=== PATIENT | male | born 1970 | race Caucasian/White ===

== ENCOUNTER 2022-09-12 08:22 | Outpatient (CLI) | payer BC, SELFPAY ==
--- NOTE | 2022-09-12 09:25 | W.ANESCHARGE ---
Anesthesia Charges Start Date/Time Anesthesia Start Date: 09/12/22 Anesthesia Start Time: 08:50 Stop Date/Time Anesthesia Stop Date: 09/12/22 Anesthesia Stop Time: 09:20
== END 2022-09-12 08:23 | disposition home or self-care (01) ==
LOC: OP CLINIC 08:23
PROVIDERS: PCP Physician Assistant Medical; Visit Provider Surgery
DX: Z12.11 Encounter for screening for malignant neoplasm of colon (principal); K63.5 Polyp of colon; K57.30 Diverticulosis of large intestine without perforation or abscess without bleeding; K63.89 Other specified diseases of intestine; Z86.010 Personal history of colon polyps
CPT/HCPCS: 00811; 45380; 45385; 88305; J2704

== ENCOUNTER 2023-06-30 14:12 | Outpatient (CLI) | payer OTHER, SELFPAY | END 2023-06-30 14:13 | disposition home or self-care (01) | PROVIDERS: PCP Family Medicine; Visit Provider Family Medicine | DX: Z00.00 Encounter for general adult medical examination without abnormal findings (principal); R03.0 Elevated blood-pressure reading, without diagnosis of hypertension; E66.9 Obesity, unspecified; R07.9 Chest pain, unspecified; Z82.49 Family history of ischemic heart disease and other diseases of the circulatory system; Z13.6 Encounter for screening for cardiovascular disorders | CPT/HCPCS: 80053; 80061 ==

== ENCOUNTER 2023-07-10 10:41 | Outpatient (CLI) | payer OTHER, SELFPAY ==
[2023-07-10 11:15] VITALS: PULSE 103; RESP 20
--- NOTE | 2023-07-10 11:38 | W.PM.STED ---
Stress Test Note Date Date Seen: 07/10/23 Date of test: 07/10/23 Providers Primary care provider: Funmi Clark Stress test physician: Brittni Yen Stress Test Note Stress test ordered: Exercise Stress Test Indication for test: Chest pain, tachycardia Stress test medicine: None Results discussion: Resting EKG: Sinus rhythm, 88 beats per minute. Incomplete right bundle branch block. Resting blood pressure: 135/88 Stress test: Patient exercised on the treadmill following standard Mickey protocol. Just after 8 minutes patient developed left chest discomfort that started to become more painful. We did terminate exercise at 9 minutes as he had achieved a heart rate of 165 and was having chest symptoms. He had a maximum heart rate during exercise of 165 beats per minute which was 116% of a calculated target of 142. He did have a mild hypertensive response to exercise with maximal blood pressure 182. Calculated rate pressure product was 28,160. There was no definitive ST segment changes diagnostic of ischemia. He did notably have a flipped T-wave in aVL and did flip his T-wave in lead V2 in recovery but there was no diagnostic ST segment changes. At the end of recovery, patient was feeling a little more left-sided chest discomfort. It was discussed with patient that given he was having ongoing symptoms, would recommend evaluation with troponin levels. Patient was brought to the ER for further evaluation and management. Impression: Subjectively positive, objectively negative EKG portion of this standard Mickey protocol treadmill exercise stress test. Follow up suggested: Patient was brought to the ER for more formal diagnostic testing including troponins. Sign-out was given to the ER physician.
== END 2023-07-10 10:42 | disposition home or self-care (01) ==
LOC: STRESS 10:45
PROVIDERS: PCP Family Medicine; Visit Provider Family Medicine
DX: R07.9 Chest pain, unspecified (principal); R00.0 Tachycardia, unspecified; R03.0 Elevated blood-pressure reading, without diagnosis of hypertension; R00.2 Palpitations
CPT/HCPCS: 93016; 93017

== ENCOUNTER 2023-07-10 11:21 | Emergency (ER) | payer OTHER, SELFPAY ==
[2023-07-10] VITALS (61 sets, daily range): BP systolic 143–193; BP diastolic 68–107; PULSE 76–106; RESP 20; O2SAT 91–98; BMI 34.7
--- NOTE | 2023-07-10 11:28 | CRLHL7_ITS ---
For Patients: As a result of the Cures Act, medical imaging exams and procedure reports are released immediately into your electronic medical record. You may view this report before your referring provider. If you have questions, please contact your health care provider. INDICATION: Chest pain. TECHNIQUE: Chest 2 views. COMPARISON: None. FINDINGS: Cardiovascular and mediastinum: Heart size and vasculature are normal in caliber and appearance. Lungs and pleural spaces: Lungs are clear. No sign of infiltrate or mass. No sign of pleural effusion. No pneumothorax. Bones and soft tissues: No significant findings. Surgical anchors in the left humerus. IMPRESSION: No acute cardiopulmonary process. Dictated by Fracisco Lucia MD @ 07/10/2023 12:16:03 PM (Electronically Signed)
--- NOTE | 2023-07-10 11:35 | ED_ITS ---
HPI - General Adult General Date Seen: 07/10/23 Chief complaint: Chest Pain Stated complaint: Chest pain Time Seen by Provider: 07/10/23 11:26 History of Present Illness HPI narrative: This is a very pleasant 52-year-old male with a past medical history which incl udes PTSD from service, insomnia, depression, BPH, overweight. He has no history of known heart or lung disease. He is a nonsmoker. Cardiac risk factors include his weight. He does not have hyperlipidemia, hypertension, for coli diabetes, family history of premature coronary artery disease. He is referred to the ER today by his stress test physician, Dr. Ludwig for chest pain and hypertension, induce during his stress test this morning. He has been experiencing intermittent episodes of chest symptoms which sometimes included chest fullness and tightness and sometimes chest pain. Often they will wrapper on the left side of his ribcage to his back. Symptoms have been occurring intermittently for several months. Initially they were fairly infrequent, occurring perhaps 1-3 times per week. Since about a month ago the beak been becoming more frequent. He has also noted some evolving dyspnea on exertion. 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 That involves a lot a running. During some of his games he is able to rest and run without symptoms. During other games he notes that he gets short of breath and squeezing leading him to sit down and take a break. He called his doctor about a month ago when his shortness of breath started to get worse. They recommended that he come to the ER but he did not feel that his symptoms were that Urgent to that time. With more frequent episodes of discomfort lately he did see his primary care provider about a week ago, after Thanksgiving. He was set up for an outpatient stress test which occurred today. His insurance company block distressed echo and he did a treadmill stress test with EKG only today. Per report the EKG did not show any definitive ischemia but he did have some nonspecific T-wave inversions during the stress test. He developed chest discomfort during the stress test. He also developed marked hypertension. Initial blood pressure was in the 130 systolic and went up to about 190 systolic. He was sent here to the ER and was having active chest pain at the time he arrived here but that is getting better now. He was feeling a little bit dizzy on the way from the stress test to the ER. He thinks it is because he did not eat breakfast this morning any might be dehydrated. No other symptoms today. No palpitations. No nausea. No fever. No swelling in his arms or legs. The discomfort in his chest is across the front and wraps a little bit around the left side of his ribs. It does not go straight through to the interscapular back. It is not ripping or tearing. Related Data Previous Rx's Medication Instructions Recorded propranolol 10 mg tablet 10 mg PO TID PRN anxiety #90 tabs 05/09/22 duloxetine 30 mg capsule,delayed 30 mg PO BID #180 caps 06/30/23 release (Cymbalta) tadalafil 20 mg tablet (Cialis) 20 mg PO QDAY PRN sexual activity 06/30/23 #30 tabs tamsulosin 0.4 mg capsule 0.4 mg PO QHS #90 caps 06/30/23 trazodone 100 mg tablet 100 - 200 mg (1 - 2 x 100 mg) PO 06/30/23 QHS #180 tabs Allergies Allergy/AdvReac Type Severity Reaction Status Date / Time promethazine Allergy Severe severe Verified 07/10/23 11:28 muscle contration droperidol Allergy Intermediate states Verified 07/10/23 11:28 almost siezed tramadol AdvReac Severe Nausea Verified 07/10/23 11:28 PFSH PFS Medical History (Updated 08/21/22 @ 10:22 by Alexandra Fraire~[facility]) Intestinal infection due to Clostridium difficile (06/18/10) ?A04.72 - Enterocolitis due to Clostridium difficile, not specified as recurrent (ICD-10) History of hypogonadism ?Z86.39 - Personal history of other endocrine, nutritional and metabolic disease (ICD-10) Diverticulosis of large intestine (05/03/11) ?K57.30 - Diverticulosis of large intestine without perforation or abscess without bleeding (ICD-10) Chronic prostatitis (06/18/10) ?N41.1 - Chronic prostatitis (ICD-10) Calculus of kidney (06/18/10) ?N20.0 - Calculus of kidney (ICD-10) Erectile dysfunction ?N52.9 - Male erectile dysfunction, unspecified (ICD-10) Surgical History (Updated 09/09/22 @ 17:21 by Funmi Clark MD) History of partial colectomy ?Z90.49 - Acquired absence of other specified parts of digestive tract (ICD- 10) History of umbilical hernia repair (06/18/10) ?Z98.890 - Other specified postprocedural states (ICD-10) ?Z87.19 - Personal history of other diseases of the digestive system (ICD-10) History of rhinoplasty (06/18/10) ?Z98.890 - Other specified postprocedural states (ICD-10) History of repair of rotator cuff (03/09/13) ?Z98.890 - Other specified postprocedural states (ICD-10) History of knee surgery ?Z98.890 - Other specified postprocedural states (ICD-10) History of colonoscopy ?Z98.890 - Other specified postprocedural states (ICD-10) History of cholecystectomy (06/18/10) ?Z90.49 - Acquired absence of other specified parts of digestive tract (ICD- 10) History of arthroscopy of left knee ?Z98.890 - Other specified postprocedural states (ICD-10) History of appendectomy (04/29/11) ?Z90.49 - Acquired absence of other specified parts of digestive tract (ICD- 10) Family History (Updated 05/06/22 @ 19:34 by Violet Garg) Father A-fib Maternal Grandfather Colon cancer Family/Other Stroke Social History (Updated 05/06/22 @ 19:34 by Violet Garg) Narrative: consumes alcohol occasionally, does not use illicit drugs, non smoker Smoking Status: Never smoker Little interest or pleasure in doing things: more than half the days Feeling down, depressed, or hopeless: several days Exam Narrative: Exam Narrative: Constitutional: Appears well-developed and well-nourished. Alert. Conversant. Non toxic. HENT: Head: Atraumatic. Nose: Nose normal. Mouth/Throat: Oral mucosa is clear and moist. no trismus. Pharynx normal. Tonsils symmetric. No tonsillar enlargement, erythema, or exudate. Eyes: Conjunctivae normal. EOM normal. Pupils equal, round, and reactive to light. No scleral icterus. Neck: Normal range of motion. Neck supple. No tracheal deviation present. No JVD. Cardiovascular: Normal rate, regular rhythm. No gallop. No friction rub. No murmur heard. Symmetric radial and PT artery pulses Initial blood pressure reading was elevated at about 190/100. Blood pressure came down without treatment. Repeat blood pressure reading was 149/95 in the left arm and 151/90 in the right arm. Pulses are symmetric on exam. Pulmonary/Chest: Effort normal. No stridor. No respiratory distress. No wheezes. No rales. No rhonchi . No tenderness. Abdominal: Soft. Bowel sounds normal. No distension. No mass. No tenderness. No rebound. No guarding. Musculoskeletal: RUE: Normal range of motion. No tenderness. No deformity LUE: Normal range of motion. No tenderness. No deformity RLE: Normal range of motion. No edema. No tenderness. No deformity LLE: Normal range of motion. No edema. No tenderness. No deformity Lymph: No cervical adenopathy. Neurological: Alert and oriented to person, place, and time. Normal strength. CN II-VII intact. No sensory deficit. GCS eye subscore is 4. GCS verbal subscore is 5. GCS motor subscore is 6. Normal coordination Skin: Skin is warm and dry. No rash noted. No pallor. Normal capillary refill. Psychiatric: Normal mood. Normal affect. Polite. Endorses mild anxiety. He did not expect to be sent to the ER today. Const: Vital Signs, click to edit/add: Vital Signs - 24 hr 07/10/23 11:28 07/10/23 11:37 07/10/23 11:49 Pulse Rate 106 H 100 Pulse Rate [Pulse Oximeter] 101 H Respiratory Rate 20 Blood Pressure Blood Pressure [Le ft Upper Arm] 193/105 H Pulse Oximetry 97 94 95 Oxygen Delivery Pa thod Room Air 07/10/23 11:54 07/10/23 11:55 07/10/23 12:00 Pulse Rate 98 96 92 Pulse Rate [Pulse Oximeter] Respiratory Rate Blood Pressure 149/101 H 151/94 H Blood Pressure [Le ft Upper Arm] Pulse Oximetry 98 95 96 Oxygen Delivery Me thod 07/10/23 12:15 07/10/23 12:26 07/10/23 12:33 Pulse Rate 89 88 95 Pulse Rate [Pulse Oximeter] Respiratory Rate Blood Pressure 165/95 H Blood Pressure [Le ft Upper Arm] Pulse Oximetry 97 92 96 Oxygen Delivery Me thod 07/10/23 12:45 07/10/23 12:56 07/10/23 13:00 Pulse Rate 85 85 83 Pulse Rate [Pulse Oximeter] Respiratory Rate Blood Pressure 156/96 H Blood Pressure [Le ft Upper Arm] Pulse Oximetry 94 95 94 Oxygen Delivery Me thod 07/10/23 13:15 07/10/23 13:29 07/10/23 13:30 Pulse Rate 82 92 87 Pulse Rate [Pulse Oximeter] Respiratory Rate Blood Pressure 173/101 H Blood Pressure [Le ft Upper Arm] Pulse Oximetry 96 95 95 Oxygen Delivery Me thod 07/10/23 13:45 07/10/23 13:58 07/10/23 14:00 Pulse Rate 81 88 84 Pulse Rate [Pulse Oximeter] Respiratory Rate Blood Pressure 153/94 H Blood Pressure [Le ft Upper Arm] Pulse Oximetry 93 94 93 Oxygen Delivery Me thod 07/10/23 14:03 07/10/23 14:04 07/10/23 14:09 Pulse Rate 82 76 94 Pulse Rate [Pulse Oximeter] Respiratory Rate Blood Pressure 163/107 H 151/103 H Blood Pressure [Le ft Upper Arm] Pulse Oximetry 98 95 96 Oxygen Delivery Me thod 07/10/23 14:10 07/10/23 14:15 07/10/23 14:30 Pulse Rate 89 81 78 Pulse Rate [Pulse Oximeter] Respiratory Rate Blood Pressure Blood Pressure [Le ft Upper Arm] Pulse Oximetry 96 92 96 Oxygen Delivery Me thod 07/10/23 14:38 07/10/23 14:39 07/10/23 14:45 Pulse Rate 81 77 88 Pulse Rate [Pulse Oximeter] Respiratory Rate Blood Pressure 161/88 H Blood Pressure [Le ft Upper Arm] Pulse Oximetry 97 93 94 Oxygen Delivery Me thod 07/10/23 15:00 07/10/23 15:08 07/10/23 15:15 Pulse Rate 87 97 92 Pulse Rate [Pulse Oximeter] Respiratory Rate Blood Pressure 160/88 H Blood Pressure [Le ft Upper Arm] Pulse Oximetry 93 93 94 Oxygen Delivery Me thod 07/10/23 15:30 07/10/23 15:38 07/10/23 15:45 Pulse Rate 91 95 94 Pulse Rate [Pulse Oximeter] Respiratory Rate Blood Pressure 147/68 H Blood Pressure [Le ft Upper Arm] Pulse Oximetry 93 93 97 Oxygen Delivery Me thod 07/10/23 16:00 07/10/23 16:08 07/10/23 16:15 Pulse Rate 91 91 90 Pulse Rate [Pulse Oximeter] Respiratory Rate Blood Pressure 156/84 H Blood Pressure [Le ft Upper Arm] Pulse Oximetry 94 94 96 Oxygen Delivery Me thod 07/10/23 16:30 07/10/23 16:38 07/10/23 16:45 Pulse Rate 84 83 83 Pulse Rate [Pulse Oximeter] Respiratory Rate Blood Pressure 157/88 H Blood Pressure [Le ft Upper Arm] Pulse Oximetry 92 95 97 Oxygen Delivery Me thod 07/10/23 17:00 07/10/23 17:08 07/10/23 17:15 Pulse Rate 98 91 85 Pulse Rate [Pulse Oximeter] Respiratory Rate Blood Pressure 143/85 H Blood Pressure [Le ft Upper Arm] Pulse Oximetry 95 95 94 Oxygen Delivery Me thod 07/10/23 17:33 07/10/23 17:38 07/10/23 17:45 Pulse Rate 91 89 86 Pulse Rate [Pulse Oximeter] Respiratory Rate Blood Pressure 152/85 H Blood Pressure [Le ft Upper Arm] Pulse Oximetry 93 93 91 Oxygen Delivery Me thod 07/10/23 18:00 07/10/23 18:08 Pulse Rate 92 92 Pulse Rate [Pulse Oximeter] Respiratory Rate Blood Pressure 171/91 H Blood Pressure [Le ft Upper Arm] Pulse Oximetry 94 93 Oxygen Delivery Me thod Course Course ED Course: Initial troponin, chest x-ray are normal. Add on D-dimer was normal. Initial blood pressure was quite elevated about 190/100. Blood pressure came down to about 150/95 without antihypertensive treatment. Recheck-patient was having some chest pain here in the ER. We administered sublingual nitro. No change after 1st nitro. Patient received a 2nd nitro and then a bit later pain resolved. It was unclear whether not the pain resolved as response to nitro or if it just resolved on its own. Recheck-2nd troponin back and normal. Discussed with the patient. He says he is having a little bit of recurrent pain now while he is resting in bed. Discussed with Cardiology, Dr. Rutledge. He says without objective evidence for ACS hold off on heparin or catheterization at this time. He would recommend that we get the patient admitted for either stress echo, coronary CTA or nuclear stress test prior to discharge. Unfortunately, these studies are not available here at [place]. He could potentially get a stress echo here next week, but not today or tomorrow or this weekend. Therefore, to expedite workup with potential ACS we will request transfer to [place]. [place] transfer [facility] indicates that they should have a bed without much delay. The electrician chief accepts on behalf of the hospitalist. Updated the patient. He verbalizes agreement. He is more anxious now. Ativan ordered. Recheck-had some recurrent chest pain. He received additional sublingual nitroglycerin at this time clearly had response to the nitro. No chest pain free. Recheck-blood pressure stable. Watching TV. Chest pain-free. Vital Signs Vital signs: Initial Vital Signs Respiratory Effort Normal, Spontaneous, Non-Labored 07/10/23 11:27 Respiratory Depth Normal 07/10/23 11:27 Vital Signs Pulse Rate 101 H 07/10/23 11:28 Respiratory Rate 20 07/10/23 11:28 Blood Pressure 193/105 H 07/10/23 11:28 Pulse Oximetry 97 07/10/23 11:28 Oxygen Delivery Method Room Air 07/10/23 11:28 Pulse Rate 92 07/10/23 18:08 Respiratory Rate 20 07/10/23 11:28 Blood Pressure 171/91 H 07/10/23 18:08 Pulse Oximetry 93 07/10/23 18:08 Oxygen Delivery Method Room Air 07/10/23 11:28 Medications Administered Medications: Generic Name Dose Route Start Last Admin Trade Name Freq PRN Reason Stop Dose Admin Nitroglycerin 0.4 mg 07/10/23 13:53 07/10/23 16:58 Nitroglycerin 0.4 Mg Tab.Subl SUBLINGUAL 0.4 mg Q5M PRN Administration Discontinued Medications Generic Name Dose Route Start Last Admin Trade Name Freq PRN Reason Stop Dose Admin Aspirin 162 mg 07/10/23 11:27 07/10/23 11:45 Aspirin 81 Mg Tab.Chew PO 07/10/23 11:28 162 mg ONCE ONE Administration Lorazepam 1 mg 07/10/23 17:00 07/10/23 17:16 Lorazepam 2 Mg/Ml Inj IVP 07/10/23 17:01 1 mg ONCE ONE Administration Medical Decision Making [facility] Narrative Medical decision making narrative: This patient presents to the ER today for evaluation of chest pain and shortness of breath, of all vein over the past couple of months.. Differential was broad. No evidence of palpitations, syncope or other cardiac dysrhythmia. We considered possible ACS, however workup with EKG and troponin is negative. HEART score is 4. Given time since onset of symptoms we did check a 2nd delta troponin and it is still normal. Given the patient's history of recurrent chest pains with increasing frequency lately, we cannot definitively rule out unstable angina. In truth his history is not classic for angina but there is enough concern with his history, risk factors, that we feel he needs further workup. Discussed with Cardiology to determine whether not they feel urgent catheterization/hospitalization was indicated. Cardiology recommends that further workup inpatient is indicated with stress testing or coronary CTA, rather than direct catheterization. Hold off on heparin for now. Initially was unclear whether the patient's's pain was responsive to nitro. On his 2nd round of pain it clearly did improved after the nitro. Although this is nondiagnostic, and raises further clinical suspicion that there may be potentially an ACS. Therefore plan for hospitalization remains appropriate. Since necessary at a chi testing is not available here [place]. He will be transferred by EMS to [facility]. EKG shows no evidence for pericarditis. No recent fever or other illness to suggest myocarditis. May need an echocardiogram to check for ejection fraction and/or valvular disease as a cause for his progressive dyspnea if his ACS workup is negative. Chest x-ray shows no evidence for pneumonia, pneumothorax, pulmonary edema, pleural effusion, rib fracture, cardiomegaly. Mediastinum is normal on the x-ray. The patient has no ripping or tearing pain through to the back and has symmetric pulses on exam, , symmetric blood pressures, and recurrent/intermittent pain for a month or more, and no other acute neuro findings so I doubt aortic dissection. Risk of radiation and contrast exposure would outweigh the benefit of CT angiogram. We considered PE for this patient. D-dimer is normal. No wheezing or bronchospasm to suggest COPD/asthma. Lab Data Labs: Lab Results 07/10/23 07/10/23 07/10/23 Range/Units 11:36 12:35 14:35 WBC 7.54 (4.50-11.00) K/uL RBC 4.98 (4.30-5.90) m/uL Hgb 15.0 (13.5-17.5) gm/dL Hct 45.1 (37.0-53.0) % MCV 91 (80-100) fL MCH 30 (26-34) pg MCHC 33 (32-36) gm/dL RDW Coeff of Lia 12.8 (11.5-15.5) % Plt Count 296 (140-440) K/uL Neut % (Auto) 59.3 (42.0-72.0) % Lymph % (Auto) 25.6 (20-44) % Pratt % (Auto) 10.1 (0.0-11.0) % Eos % (Auto) 4.5 (0.0-7.0) % Baso % (Auto) 0.4 (0.0-3.0) % Neut # (Auto) 4.47 (1.7-7.0) K/uL Lymph # (Auto) 1.93 (0.90-2.90) K/uL Pratt # (Auto) 0.80 (0.00-0.90) K/UL Eos # (Auto) 0.34 (0.00-0.50) K/uL Baso # (Auto) 0.03 (0.00-0.30) K/uL Abs Immat Gran (auto) 0.01 (0.00-0.30) K/uL Imm/Tot Granulo (auto) 0.1 % D-Dimer Quant (PE/DVT) 0.33 (0.00-0.50) ug/ml Sodium 137 (135-149) mmol/L Potassium 4.3 (3.6-5.1) mmol/L Chloride 105 (96-114) mmol/L Carbon Dioxide 21 (20-32) mmol/L Anion Gap 11 (7-15) mEq/L BUN 11 (7-30) mg/dL Creatinine 0.9 (0.5-1.5) mg/dL Estimated Creat Clear 94.92 Estimated GFR 102 ml/min Glucose 102 (60-115) mg/dL Calcium 8.9 (8.4-10.6) mg/dL Troponin I < 0.01 L < 0.01 L (0.01-0.04) ng/mL Lab Acknowledgement Test Added Imaging Data Chest x-ray: Attestation: I have reviewed the pertinent imaging results. ECG Data Attestation: I personally reviewed and interpreted this ECG as follows: Interpretation: Normal sinus rhythm rate. Ninety-nine. IN 160. QRS axis left axis deviation. Poor R-wave progression. Pulmonary disease pattern. Left anterior fascicular block. ST segment/T wave: Less than [address] elevation in AVR, unchanged from 07/01/2023. No new ST segment elevation or depression. QTc: 472 Discharge Plan Discharge Prescriptions: No Action propranolol 10 mg tablet 10 mg PO TID PRN (Reason: anxiety) Qty: 90 3RF trazodone 100 mg tablet 100 - 200 mg PO QHS Qty: 180 3RF tamsulosin 0.4 mg capsule 0.4 mg PO QHS Qty: 90 3RF tadalafil [Cialis] 20 mg tablet 20 mg PO QDAY PRN (Reason: sexual activity) Qty: 30 12RF Rx Instructions: administer approximately 30min before sexual activity; do not use more than 1 dose per 24hrs duloxetine [Cymbalta] 30 mg capsule,delayed release(DR/EC) 30 mg PO BID Qty: 180 3RF Follow Up/Referrals: Funmi Clark MD [Primary Care Provider] -
[2023-07-10] MEDS: ASPIRIN 81 MG TAB.CHEW 162 MG PO (11:45)
[2023-07-10 11:47] LABS: Basophils Absolute Auto 0.03 K/uL (0.00-0.30); Basophils Percent Auto 0.4 % (0.0-3.0); Eosinophils Absolute Auto 0.34 K/uL (0.00-0.50); Eosinophils Percent Auto 4.5 % (0.0-7.0); Hematocrit 45.1 % (37.0-53.0); Immature Granulocytes Abs Auto 0.01 K/uL (0.00-0.30); Immature Granulocytes Pct Auto 0.1 %; Lymphocytes Absolute Auto 1.93 K/uL (0.90-2.90); Lymphocytes Percent Auto 25.6 % (20-44); Mean Corpuscular HGB Conc 33 gm/dL (32-36); Mean Corpuscular Hemoglobin 30 pg (26-34); Mean Corpuscular Volume 91 fL (80-100); Monocytes Percent Auto 10.1 % (0.0-11.0); Neutrophils Absolute Auto 4.47 K/uL (1.7-7.0); Neutrophils Percent Auto 59.3 % (42.0-72.0); Platelet Count* 296 K/uL (140-440); RDW Coefficient of Variation % 12.8 % (11.5-15.5); Red Blood Count 4.98 m/uL (4.30-5.90); White Blood Count* 7.54 K/uL (4.50-11.00)
[2023-07-10 11:51] LABS: Slide Review Reflex No
[2023-07-10 12:17] LABS: Chloride* 105 mmol/L (96-114); Potassium* 4.3 mmol/L (3.6-5.1); Sodium* 137 mmol/L (135-149)
[2023-07-10 12:20] LABS: Anion Gap 11 mEq/L (7-15); Blood Urea Nitrogen* 11 mg/dL (7-30); Calcium* 8.9 mg/dL (8.4-10.6); Carbon Dioxide* 21 mmol/L (20-32); Creatinine* 0.9 mg/dL (0.5-1.5); Est. Creatinine Clearance* 94.92; Estimated Glomerular Filt Rate 102 ml/min; Glucose* 102 mg/dL (60-115)
[2023-07-10 12:54] LABS: Troponin I* < 0.01 ng/mL (0.01-0.04)
[2023-07-10 13:12] LABS: D Dimer Quantitative* 0.33 ug/ml (0.00-0.50)
[2023-07-10] MEDS: NITROGLYCERIN 0.4 MG TAB.SUBL SUBLINGUAL ×2 (14:03→16:58)
[2023-07-10 15:13] LABS: Troponin I* < 0.01 ng/mL (0.01-0.04)
--- NOTE | 2023-07-10 17:01 | ED.NURSE ---
Addendum entered by Alexandra Figueroa RN 07/10/23 17:21: Patient rechecked following Nitro and states that pressure in chest is now gone. Original Note: Second nitro given now. Patient states that left sided pain is better especially with some movement. Patient does report significant anxeity and MD notify and Ativan order written.
[2023-07-10] MEDS: LORazepam 2 MG/ML inj 1 MG IVP (17:16)
== END 2023-07-10 20:46 | disposition home or self-care (01) ==
LOC: ED 12:23
PROVIDERS: Emergency Provider Emergency Medicine; PCP Family Medicine
DX: R07.9 Chest pain, unspecified (principal)
CPT/HCPCS: 36415; 71046; 80048; 84484; 85025; 85379; 93005; 96374; 99284; 99285; A9270; J2060

== ENCOUNTER 2023-07-10 20:25 | Outpatient (CLI) | payer OTHER, SELFPAY | END 2023-07-10 20:26 | disposition home or self-care (01) | LOC: AMB 07-11 09:42 | PROVIDERS: PCP Family Medicine; Visit Provider Student in an Organized Health Care Education/Training Program | DX: R07.89 Other chest pain (principal) | CPT/HCPCS: A0425; A0427 ==